=== PATIENT | female | born 2000 | race Caucasian/White ===

== ENCOUNTER 2019-09-26 21:52 | Emergency (ER) | payer BC ==
[~2019-09-26] VITALS: Ht 177.8 cm; Wt 72.6 kg
[2019-09-27 00:11] VITALS: BP 114/61
== END 2019-09-27 00:12 | disposition home or self-care (01) ==
LOC: ER 21:52
DX: J06.9 Acute upper respiratory infection, unspecified (principal); Z20.828 Contact with and (suspected) exposure to other viral communicable diseases; Z90.711 Acquired absence of uterus with remaining cervical stump